=== PATIENT | male | born 1960 | race Hispanic/Latino ===

== ENCOUNTER 2016-07-21 10:47 | Emergency (ER) | payer BC ==
[2016-07-21 10:53] VITALS: BP 143/77; PULSE 98; RESP 20; TEMP 98.4; O2SAT 97
--- NOTE | 2016-07-21 11:09 | ED PDOC ---
Upper Extremity Pain/Injury Time Seen by Provider: 07/21/16 11:07 Chief Complaint (Nursing): Upper Extremity Problem/Injury Chief Complaint (Provider): righ arm injury History Per: Patient (56 y/o male h/o Diabetes here for evaluation of right forearm discomfort noted today while pulling on cable at work. States pain was severe at time but has since resolved. No h/o injury/pain in past. Able to move arm without discomfort.) Past Medical History Reviewed: Historical Data, Nursing Documentation, Vital Signs Vital Signs: Last Vital Signs Temp 98.4 F 07/21/16 10:52 Pulse 98 H 07/21/16 10:52 Resp 20 07/21/16 10:52 BP 143/77 07/21/16 10:52 Pulse Ox 97 07/21/16 10:52 - Family History Family History: States: No Known Family Hx - Allergies Allergies/Adverse Reactions: Allergies Allergy/AdvReac Type Severity Reaction Status Date / Time No Known Allergies Allergy Verified 07/21/16 11:03 Review of Systems ROS Statement: Except As Marked, All Systems Reviewed And Found Negative Musculoskeletal: Positive for: Other (arm pain) Physical Exam - Reviewed Nursing Documentation Reviewed: Yes Vital Signs Reviewed: Yes - Physical Exam Appears: Positive for: Well, Non-toxic, No Acute Distress Head Exam: Positive for: ATRAUMATIC, NORMAL INSPECTION, NORMOCEPHALIC Skin: Positive for: Normal Color, Warm, DRY Eye Exam: Positive for: EOMI, Normal appearance, PERRL ENT: Positive for: Normal ENT Inspection Neck: Positive for: Normal, Painless ROM Cardiovascular/Chest: Positive for: Regular Rate, Rhythm Respiratory: Positive for: CNT, Normal Breath Sounds Gastrointestinal/Abdominal: Positive for: Normal Exam, Bowel Sounds, Soft Back: Positive for: Normal Inspection Extremity: Positive for: Normal ROM, Other (Patient able to flex and extend digits right hand without difficulty. No bruising/swelling noted. Sensation wnl. Pain was noted initially proximal forearm.) Neurologic/Psych: Positive for: Alert, Oriented - ECG O2 Sat by Pulse Oximetry: 97 - Progress ED Course And Treament: Forearm right: no obvious deformity noted. Disposition - Clinical Impression Clinical Impression: Forearm injury - Patient ED Disposition Is Patient to be Admitted: No - Disposition Disposition: Routine/Home Disposition Time: 11:54 Condition: FAIR Instructions: Muscle Strain (ED) Forms: [employer] ED School/Work Excuse
--- NOTE | 2016-07-21 11:56 | RAD ---
PROCEDURE: Radiographs of the Right Forearm HISTORY: Forearm injury COMPARISON: None available. TECHNIQUE: Frontal and lateral views obtained. FINDINGS: BONES: Bone alignment and mineralization are normal. There is no acute fracture or bone destruction. JOINT SPACES: Unremarkable. OTHER FINDINGS: None. IMPRESSION: No acute fracture or dislocation.
== END 2016-07-21 12:11 | disposition home or self-care (01) ==
LOC: H.ER 10:47
DX: S59.911A Unspecified injury of right forearm, initial encounter (principal); X50.1XXA Overexertion from prolonged static or awkward postures, initial encounter; Y99.0 Civilian activity done for income or pay